=== PATIENT | female | born 1990 | race Caucasian/White ===

== ENCOUNTER 2019-10-29 12:04 | Emergency (ER) | payer BC, SELFPAY ==
[2019-10-29 12:14] VITALS: BP 119/73; PULSE 90; RESP 14; TEMP 36.7; O2SAT 100
--- NOTE | 2019-10-29 12:37 | ED.FEMALEGU ---
HPI - Female Genitourinary General Chief complaint: Urogenital-Female Stated complaint: back pain/pain urinating/blood in urine Time Seen by Provider: 10/29/19 12:28 Source: patient and RN notes reviewed Mode of arrival: ambulatory Limitations: no limitations History of Present Illness HPI Narrative: Patient presents today complaining of a 9-day history of dysuria, 2-day history of hematuria, frequency, urgency, suprapubic pressure, and bilateral back pain. She ran 101 fever yesterday with chills and sweats.History of pyelonephritis in the past, several years ago. History of frequent UTIs. Patient has been taking the Azo cranberry pills and ibuprofen for symptoms with relief. MD elicited complaint: dysuria Related Data Allergies Allergy/AdvReac Type Severity Reaction Status Date / Time No Known Allergies Allergy Verified 10/29/19 12:22 Review of Systems Review of Systems: Narrative: CONSTITUTIONAL: Denies body aches. +Fever, chills, sweats EYES: Denies visual changes, redness, or discharge. ENT: Denies rhinorrhea, congestion, sore throat, or otalgia. CARDIOVASCULAR: Denies chest pain, palpitations, or edema. RESPIRATORY: Denies cough or dyspnea. GASTROINTESTINAL: Denies abdominal pain, nausea, vomiting, or diarrhea. GENITOURINARY: +Dysuria, hematuria, urgency, frequency, flank pain, suprapubic pressure SKIN: Denies rash, itching, or wounds. MUSCULOSKELETAL: Denies back pain, joint pain, or myalgia. NEUROLOGIC: Denies headache, numbness, tingling, or weakness. PSYCH: Denies depression or anxiety. [facility] Past Medical History Medical History (Updated 10/29/19 @ 12:41 by Soo Espinoza, [facility], ) Frequent UTI Pyelonephritis Surgical History Surgical History (Updated 10/29/19 @ 12:39 by Soo Espionza, [facility], ) H/O: hysterectomy Comments At time of signature, I have reviewed and agree with nursing past medical, surgical, social and family history unless otherwise noted. Please see nursing chart for further information. There is no relevant family history pertinent to the presenting complaint Exam Narrative: Exam Narrative: GENERAL: Well-appearing, well-nourished, and in no acute distress. HEAD: Normocephalic, atraumatic. EYES: EOMI. No redness or drainage. Conjunctivae normal. ENT: Mucous membranes pink and moist. NECK: Normal AROM. Supple. No lymphadenopathy. CHEST: No respiratory distress. Clear to auscultation. HEART: Regular rate and rhythm. No murmur appreciated. Normal peripheral pulses. ABDOMEN: Soft, nondistended, normal active bowel sounds. +Bilateral CVAT.+Suprapubic tenderness MUSCULOSKELETAL: No bony tenderness. EXTREMITIES: Normal range of motion. No edema. SKIN: Warm, dry, no rash. Capillary refill normal. Normal skin turgor. NEURO: No focal deficits. Alert and oriented x3. Gait steady. PSYCH: Normal affect. No signs of depression or anxiety. Course Vital Signs Vital signs: Vital Signs Temperature 98.0 F 10/29/19 12:14 Pulse Rate 90 10/29/19 12:14 Respiratory Rate 14 10/29/19 12:14 Blood Pressure 119/73 10/29/19 12:14 Pulse Oximetry 100 10/29/19 12:14 Temperature 98.0 F 10/29/19 12:14 Pulse Rate 90 10/29/19 12:14 Respiratory Rate 14 10/29/19 12:14 Blood Pressure 119/73 10/29/19 12:14 Pulse Oximetry 100 10/29/19 12:14 At time of signature, I have reviewed and agree with nursing past medical, surgical, social and family history unless otherwise noted. Please see nursing chart for further information. There is no relevant family history pertinent to the presenting complaint MDM - Female Genitourinary Differential Diagnosis Differential diagnosis: Likely urinary tract infection and other (Pyelonephritis, kidney stone, vaginitis) Lab Data Attestation: I reviewed the patient's lab results. Labs: Urine Glucose Negative Reference Range: Negative Urine Bilirubin Negative Reference Range: Negative
== END 2019-10-29 12:46 | disposition home or self-care (01) ==
PROVIDERS: Emergency Provider Nurse Practitioner
DX: N12 Tubulo-interstitial nephritis, not specified as acute or chronic (principal); Z87.440 Personal history of urinary (tract) infections
CPT/HCPCS: 81003; 87077; 87086; 87088; 87186; 99213; G0463

== ENCOUNTER 2019-10-31 15:35 | Outpatient (CLI) | payer BC, SELFPAY ==
[2019-10-31 17:38] LABS: Hematocrit 44.5 % (37.0-47.0); Mean Corpuscular HGB Conc 31.5 g/dl (32-36); Mean Corpuscular Hemoglobin 28.9 pg (26-34); Mean Corpuscular Volume 91.8 fl (80-100); Mean Platelet Volume 10.2 fl (7.4-10.4); Platelet Count Result 334 k/mm3 (150-375); Red Blood Count 4.85 M/mm3 (4.2-5.4); Red Cell Distribution Width 12.9 % (11.5-14.5)
[2019-10-31 17:54] LABS: Alanine Aminotransferase 16 U/L (4-35); Albumin Level 4.3 g/dL (3.5-5.1); Alkaline Phosphatase 74 U/L (38-126); Aspartate Amino Transferase 23 U/L (14-36); Bilirubin,Total 0.2 mg/dL (0.2-1.3); Blood Urea Nitrogen 8 mg/dL (7-17); Calcium 9.3 mg/dL (8.4-10.2); Carbon Dioxide 27 mmol/L (22-30); Chloride 104 mmol/L (98-107); Estimated Glomerular Filt Rate > 60; Glucose 92 mg/dL (65-105); Potassium 3.8 mmol/L (3.4-5.0); Sodium 138 mmol/L (137-145)
== END 2019-10-31 15:36 | disposition home or self-care (01) ==
LOC: ANHLAB 15:41
PROVIDERS: Visit Provider Emergency Medicine
DX: F41.9 Anxiety disorder, unspecified (principal)
CPT/HCPCS: 36415; 80053; 85027

== ENCOUNTER 2019-10-31 17:29 | Emergency (ER) | payer BC, SELFPAY ==
--- NOTE | ~2019-10-31 | XR_ITS ---
EXAMINATION: XR abdomen/kub 1V EXAM DATE: 10/31/2019 19:39 INDICATION: 12 days right flank pain, worsening today. TECHNIQUE: Frontal projection of the upper abdomen, frontal projection lower abdomen/pelvis for inter pretation. There is no prior study for comparison. FINDINGS: There is expected amount of colonic stool and gas. No small bowel dilation, nonobstructiv e bowel gas pattern. There are no suspicious calcifications identified. There is no organomegaly suspected. The bones are unremarkable. Lung bases are clear. IMPRESSION: Unremarkable abdomen x-ray exam. Reviewed, dictated and finalized at location A.
--- NOTE | ~2019-10-31 | CT_ITS ---
EXAMINATION: CT abdomen pelvis wo con EXAM DATE: 10/31/2019 19:35 INDICATION: Right flank pain. TECHNIQUE: Spiral CT of the abdomen and pelvis was performed without contrast. Axial, coronal and sag ittal images were reviewed. The dose-length product (DLP) for this examination was 363.55 mGy-cm. T he exposure was tailored according to patient size (auto mA exposure control), and iterative reconstr uction (ASIR) was used as additional dose reduction technique. There is no prior study for compariso n. FINDINGS: There is no nephrolithiasis or hydronephrosis. The uterus is not identified and has likel y been surgically resected. The bladder is unremarkable. The liver, spleen, adrenal glands and panc reas are unremarkable. Gallbladder is unremarkable. No biliary obstruction. There is no retroperit rothman or pelvic lymphadenopathy. The appendix is normal. The stomach and small bowel are unremarkable. There is expected amount of c olonic stool. There is mild scattered colonic diverticulosis. There is no adjacent inflammatory ramirez ge to suggest diverticulitis. No free intraperitoneal gas. The heart is normal in size. There are no pericardial or pleural effusions. The lung bases are unremarkable. The bones are unremarkable. IMPRESSION: 1. No nephrolithiasis, hydronephrosis or acute intra-abdominal findings. 2. Mild scattered colonic diverticulosis. Reviewed, dictated and finalized at location A.
--- NOTE | ~2019-10-31 | CT_ITS ---
EXAMINATION: CTA chest PE protocol EXAM DATE: 10/31/2019 21:08 INDICATION: Right rib pain with inspiration. TECHNIQUE: Spiral CTA of the chest (pulmonary arteries) was performed with 100 cc Omnipaque 350 intr avenous contrast injection. Images were acquired during the pulmonary arterial phase. Coronal maxi mum intensity projection 3D-reconstructions were created by the technologist on dedicated workstation . Axial, coronal and sagittal reformatted images were reviewed. The dose-length product (DLP) for t his examination was 191.52 mGy-cm. The exposure was tailored according to patient size (auto mA exp osure control), and iterative reconstruction (ASIR) was used as additional dose reduction technique. There is no prior study for comparison. Correlation was made with CT abdomen pelvis same date. FINDINGS: Pulmonary arteries are well opacified and without intraluminal filling defects. No thora cic aortic dissection. The lungs are clear. There are no pleural or pericardial effusions. Trach eobronchial tree is patent. There is no mediastinal, hilar or axillary lymphadenopathy. There is no pneumothorax. Heart normal in size. No evidence of coronary arterial calcification. Upper abd omen is unremarkable. The bones, right ribs are unremarkable. IMPRESSION: 1. Unremarkable CT pulmonary exam. Reviewed, dictated and finalized at location G.
[2019-10-31 17:42] VITALS: BP 128/83; PULSE 84; RESP 18; TEMP 37.2; O2SAT 98
[2019-10-31 18:06] LABS: Basophils Percent Auto 0.4 % (0.2-1.2); Eosinophils Absolute Auto 0.7 K/mm3 (0-0.3); Eosinophils Percent Auto 7.2 % (0-4.4); Immature Granulocyte Absolute 0.02 K/mm3 (0.00-0.031); Immature Granulocyte Percent A 0.2 % (0-0.5); Lymphocytes Absolute Auto 2.49 K/mm3 (0.9-3.2); Lymphocytes Percent Auto 26.1 % (18.3-44.2); Mean Corpuscular HGB Conc 32.6 g/dl (32-36); Mean Corpuscular Hemoglobin 29.3 pg (26-34); Mean Platelet Volume 9.7 fl (7.4-10.4); Monocytes Absolute Auto 0.6 K/mm3 (0.1-0.6); Neutrophils Absolute Auto 5.7 K/mm3 (1.3-6.7); Neutrophils Percent Auto 60.1 % (45.5-73.1); Platelet Count Result 353 k/mm3 (150-375); Red Blood Count 4.78 M/mm3 (4.2-5.4); Red Cell Distribution Width 12.7 % (11.5-14.5); White Blood Count 9.5 K/mm3 (4.5-10.0)
[2019-10-31 18:12] LABS: Add Urine Microscopic? YES; Appearance Urine Clear (Clear); Bacteria Urine Trace /hpf; Bilirubin Urine Negative (Negative); Blood Urine Negative (Negative); Color Urine Yellow (Yellow); Glucose Urine UA Negative (Negative); Ketones Urine Negative (Negative); Leukocyte Esterase Ur Negative LEU/UL (Negative); Mucus Urine Rare /lpf; Nitrate Urine Negative (Negative); Protein Urine 1+ mg/dL (Negative); Specific Grav Ur 1.016 (1.001-1.035); Squamous Epithelial Cell Urine Many /hpf (Few); Urobilinogen Urine Negative mg/dL (<2.0)
[2019-10-31 18:18] LABS: Blood Urea Nitrogen 9 mg/dL (7-17); Calcium 8.9 mg/dL (8.4-10.2); Carbon Dioxide 23 mmol/L (22-30); Chloride 107 mmol/L (98-107); Estimated CRCL calculation 97 ml/min; Estimated Glomerular Filt Rate > 60; Glucose 125 mg/dL (65-105); Potassium 3.6 mmol/L (3.4-5.0); Sodium 139 mmol/L (137-145)
[2019-10-31 19:00] VITALS: BP 112/72; PULSE 62; RESP 18; O2SAT 98
--- NOTE | 2019-10-31 19:17 | ED.ABDPAIN ---
HPI - Abdominal Pain General Chief Complaint: Urogenital-Female Stated Complaint: FLANK PAIN, +UTI ON ABX Time Seen by Provider: 10/31/19 19:10 Source: patient Mode of arrival: ambulatory Limitations: no limitations History of Present Illness HPI narrative: This patient is a 29 yo female who presents for evaluation of right upper abdominal pain. Patient states 1 week ago she was having UTI symptoms which include dysuria, increased urinary frequency and pelvic pressure, so she started taking AZo . Her symptoms did not improve and she developed hematuria so she went to Urgent care 2 days ago . She was prescribed cipro for a UTI. She also reports having a fever of 101 F 2 days ago but she has been afebrile since. Her hematuria has resolved as well. She saw Dr. Rivers today for follow up and he sent her to ER for evaluation of continued right flank pain. MD elicited complaint: flank pain Onset (ago): day(s) (7) Location: R flank Radiation: RUQ Exacerbating factors: movement Associated symptoms: fever and hematuria Treatments prior to arrival: NSAIDs (motrin this morning) Related Data Allergies Allergy/AdvReac Type Severity Reaction Status Date / Time No Known Allergies Allergy Verified 10/29/19 12:22 Review of Systems Review of Systems: All systems reviewed & are unremarkable except as noted in HPI and below Constitutional: Constitutional: Denies chills and Reports fever(s) ENT: Denies nasal congestion and Denies sore throat Cardiovascular: Cardiovascular: Denies chest pain and Denies radiating jaw, neck or arm pain Respiratory: Respiratory: Denies cough and Denies dyspnea Gastrointestinal: Gastrointestinal: Reports abdominal pain, Denies diarrhea and Denies vomiting Genitourinary: Genitourinary: Reports hematuria, Reports nocturia and Reports flank pain Musculoskeletal: Musculoskeletal: Reports back pain PMFSH Past Medical History Medical History (Updated 11/01/19 @ 00:00 by Bethel Hdz) Frequent UTI Pyelonephritis Surgical History Surgical History (Updated 10/29/19 @ 12:39 by Soo Espinoza, [employer], ) H/O: hysterectomy Social History Social History Gender identity (if verbalized by the patient): Female Exam Narrative: Exam Narrative: GENERAL: Well-appearing, well-nourished, and in no acute distress. HEAD: Normocephalic, atraumatic EYES: PERRLA and EOMI, conjunctiva clear without discharge THROAT:Mucous membranes moist, O RESPIRATORY: No respiratory distress, Airway patent, Respirations non-labored, Clear to auscultation without rales, rhonchi or wheeze HEART: Regular rate and rhythm. No murmur heard. Normal peripheral pulses. ABDOMEN: Soft,RUQ tenderness, with Right CVA tenderness, nondistended, normal active bowel sounds. No masses. No rebound or guarding, No organomegaly. EXTREMITIES: No edema, normal strength with full range of motion. SKIN: Warm, dry, normal color without rash NEURO: Alert and oriented x3. CN 2-12 grossly intact. No focal deficits. PSYCH: Normal mood and affect. Course Reevaluation(s) Reevaluation #1: I have discussed with patient results. She will continue taking antibiotics for presumed kidney infection since she did have uti symptoms with fever 2 days ago. Date: 10/31/19 Time: 21:28 Vital Signs Vital signs: Vital Signs Temperature 98.9 F 10/31/19 17:42 Pulse Rate 84 10/31/19 17:42 Respiratory Rate 18 10/31/19 17:42 Blood Pressure 128/83 10/31/19 17:42 Pulse Oximetry 98 10/31/19 17:42 Temperature 98.9 F 10/31/19 17:42 Pulse Rate 70 10/31/19 21:00 Respiratory Rate 18 10/31/19 21:00 Blood Pressure 116/70 10/31/19 21:00 Pulse Oximetry 98 10/31/19 21:00 MDM - Abdominal Pain Differential Diagnosis Differential diagnosis: Likely acute appendicitis, calculus of kidney and pancreatitis Lab Data Attestation: I reviewed the patient's lab results. Result diagrams: 10/31/19 17:52 10/31/19
[2019-10-31 19:33] LABS: Alanine Aminotransferase 17 U/L (4-35); Albumin Level 4.2 g/dL (3.5-5.1); Alkaline Phosphatase 77 U/L (38-126); Aspartate Amino Transferase 28 U/L (14-36); Bilirubin,Total 0.2 mg/dL (0.2-1.3); Lipase 59 U/L (23-300)
[2019-10-31] MEDS: SODIUM CHLORIDE 0.9% IV 1,000 ML 999 ML IV CONT (20:31)
[2019-10-31 20:33] LABS: D Dimer 0.49 ug/mL (<0.48)
[2019-10-31 20:40] LABS: INR 0.9; Prothrombin Time 11.8 Seconds (11.1-14.7)
[2019-10-31 20:41] LABS: Partial Thromboplastin Time 30.2 SECONDS (22.3-36.8)
[2019-10-31 21:00] VITALS: BP 116/70; PULSE 70; RESP 18; O2SAT 98
== END 2019-10-31 21:52 | disposition home or self-care (01) ==
PROVIDERS: Emergency Medicine; Emergency Provider General Practice; PCP Emergency Medicine
DX: N39.0 Urinary tract infection, site not specified (principal); K57.90 Diverticulosis of intestine, part unspecified, without perforation or abscess without bleeding
CPT/HCPCS: 36415; 71275; 74018; 74176; 80048; 80076; 81001; 83690; 85025; 85380; 85610; 85730; 87086; 96361; 96374; 99284; J0131; J7030; Q9967